=== PATIENT | female | born 1950 | race Caucasian/White ===

== ENCOUNTER 2022-12-14 14:35 | Emergency (ER) | payer MEDICARE, SELFPAY ==
[2022-12-14 14:57] VITALS: BP 136/62; PULSE 66; RESP 18; TEMP 36.7; O2SAT 99
--- NOTE | 2022-12-14 16:09 | PC.NURSE ---
1515 PT SUDDENLY INFORMED RN SHE IS LEAVING BECAUSE SHE DID NOT WANT TO HAVE TO WAIT TO BE SEEN BY PROVIDER. WHEN PREVIOUSLY ASKED, INFORMED THERE WERE SEVERAL PTS IN FRONT OF HER. PREVIOUSLY AWARE ELL TUTOR WOULD SEE AND EVALUATE HER FOR SKIN SORE; REFUSES ASSESSMENT BY RN AT THIS TIME. PT ACCOMPANIED BY COUSIN, WHO DROVE HER TO FACILITY, STATING PT IS FORGETFUL. NOTED PT MINTO AND POOR HISTORIAN. LEFT AT THIS TIME, NO APPARENT DISTRESS. PT REQUESTS NOT TO BE BILLED FOR TODAYS VISIT.
== END 2022-12-14 15:15 | disposition left against medical advice (07) ==
PROVIDERS: Emergency Provider Nurse Practitioner Family; PCP Physician Assistant
DX: Z53.21 Procedure and treatment not carried out due to patient leaving prior to being seen by health care provider (principal)
CPT/HCPCS: 99199